=== PATIENT | male | born 1935 | race Caucasian/White ===

== ENCOUNTER → 2016-11-29 | Outpatient (CLI) | payer OTHER ==
[~2016-11-29] MED LIST: ASPI81TA28 PO; LIDO2SOL19 PO; METO25TA3 PO; RAMI10CA PO; RAMI2.5C PO; RIVA1TAB4 PO; ZCRT/40 PO
[2016-11-29 12:23] LABS: BASO % 0.6 %; BASO ABS # 0.03 K/uL (0-0.2); COMPLETE YES; HEMATOCRIT 44.6 % (42-52); IG% 0.2 %; LYMPH ABS # 1.73 K/uL (1.2-3.4); MEAN CELL VOLUME 90.7 fL (80-100); MEAN CORPUSCULAR HEMOGLOBIN 30.1 pg (25-34); MEAN CORPUSCULAR HGB CONC 33.2 g/dl (32-36); MEAN PLATELET VOLUME 10.9 fL (7.4-10.4); NEUT % 50.2 %; PLATELET COUNT 198 K/uL (130-400); RED BLOOD COUNT 4.92 M/uL (4.7-6.1); WHITE BLOOD COUNT 5.25 K/uL (4.8-10.8)
[2016-11-29 12:35] LABS: ALT/SGPT 33 U/L (12-78); BLOOD UREA NITROGEN 15 mg/dl (7-18); BUN/CREATININE RATIO 11.8 (10-20); CARBON DIOXIDE 28 mmol/L (21-32); CHLORIDE 106 mmol/L (98-107); CHOLESTEROL 113 mg/dl (0-200); GLUCOSE 104 mg/dl (70-99); POTASSIUM 3.9 mmol/L (3.5-5.1); SODIUM 142 mmol/L (136-145); TRIGLYCERIDES 86 mg/dl (0-150); VERY LOW DENSITY LIPOPROT CALC 17 mg/dl
[2016-11-29 12:38] LABS: ALB/GLOB RATIO 1.2 (0.9-2); ALKALINE PHOSPHATASE 57 U/L (45-117); AST/SGOT 31 U/L (15-37); CHOLESTEROL/HDL RATIO 2.7; HDL CHOLESTEROL 42 mg/dl; LDL CHOLESTEROL CALCULATED 54 mg/dl
[2016-11-29 13:23] LABS: CALCIUM 9.2 mg/dl (8.5-10.1)
== END | disposition home or self-care (01) ==
LOC: C.LABPBG 08:55
PROVIDERS: ATTEND Internal Medicine
DX: I34.0 Nonrheumatic mitral (valve) insufficiency (principal)

== ENCOUNTER 2017-07-13 23:06 | Emergency (ER) | payer OTHER ==
[~2017-07-13] VITALS: Ht 180.3 cm; Wt 90.7 kg
[~2017-07-13 23:06] MED LIST changes: -LIDO2SOL19 PO; -METO25TA3 PO; -RAMI10CA PO; -RIVA1TAB4 PO
[2017-07-13 23:09] VITALS: TEMP 37; Ht 180.3 cm; Wt 90.7 kg
--- NOTE | 2017-07-13 23:17 | EMERGENCY ROOM VISIT NOTE ---
History Report prepared by Nic: Gabriela Campbell Under the Supervision of: Dr. Taylor Bruner D.O. First contact with patient: 23:06 Chief Complaint: CHEST PAIN Stated Complaint: CHEST PAIN History of Present Illness The patient is a 82 year old male who presents to the Emergency Room with complaints of an episode of atrial fibrillation occurring just prior to arrival. With the onset of his symptoms, the patient was having shortness of breath, chest pain and heart racing. Presently, the patient states he feels fine. The patient's called EMS because he couldn't catch his breath. The patient has a history of an angioplasty and atrial fibrillation. 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 Presently, the pt denies headache, change in vision, fevers , chest pain, shortness of breath, nausea, vomiting, diarrhea, pain with urination, and melena. Source of History: patient Onset: just prior to arrival Position: other (generalized) Quality: other (atrial fibrillation) Timing: other (episode) Associated Symptoms: + chest pain, + SOB, No fevers, No headache, No nausea , No vomiting, No diarrhea, No urinary symptoms Review of Systems See HPI for pertinent positives & negatives. A total of 10 systems reviewed and were otherwise negative. Past Medical & Surgical Surgical Problems: (1) History of angioplasty Family History Patient reports no known family medical history. Social History Marital Status: Housing Status: lives with significant other Occupation Status: retired Current/Historical Medications Scheduled Aspirin (Aspirin Ec), 81 MG PO DAILY Lidocaine Hcl (Mouth-Throat) (Lidocaine Viscous), 5-10 ML PO TID Metoprolol Succ (Toprol Xl) (Toprol-Xl), 25 MG PO DAILY Ramipril (Ramipril), 10 MG PO DAILY Rivaroxaban (Xarelto), 20 MG PO DAILY Simvastatin (Zocor), 40 MG PO QPM Allergies Coded Allergies: No Known Allergies (Unverified , 07/13/17) Physical Exam Vital Signs Date Time Temp Pulse Resp B/P (MAP) Pulse Ox O2 Delivery O2 Flow Rate FiO2 07/14/17 03:24 103 20 152/93 93 Room Air 07/14/17 03:16 102 07/14/17 02:19 99 20 165/89 94 Room Air 07/14/17 01:34 92 20 174/98 95 Nasal Cannula 2.0 07/14/17 00:35 78 20 149/92 95 Nasal Cannula 2.0 07/13/17 23:45 110 24 169/109 97 Nasal Cannula 2.0 07/13/17 23:27 88 07/13/17 23:22 Nasal Cannula 2.0 07/13/17 23:22 96 Nasal Cannula 2.0 07/13/17 23:20 84 07/13/17 23:17 94 Room Air 07/13/17 23:09 37.0 91 22 161/117 94 Room Air Physical Exam GENERAL: alert, well appearing, well nourished, no distress, non-toxic EYE EXAM: normal conjunctiva, PERRL and EOM's grossly intact OROPHARYNX: no exudate, no erythema, lips, buccal mucosa, and tongue normal and mucous membranes are moist NECK: supple, no nuchal rigidity, no adenopathy, non-tender LUNGS: Bibasilar rales HEART: tachycardic and irregular. no murmurs, S1 normal and S2 normal ABDOMEN: abdomen soft, non-tender, normo-active bowel sounds, no masses, no rebound or guarding. BACK: Back is symmetrical on inspection and there is no deformity, no midline tenderness, no CVA tenderness. SKIN: no rashes and no bruising UPPER EXTREMITIES: upper extremities are grossly normal. LOWER EXTREMITIES: No pitting edema. NEURO EXAM: Normal sensorium, cranial nerves II-XII grossly intact, normal speech, no gross weakness of arms, no gross weakness of legs. Medical Decision & Procedures ER Provider Diagnostic Interpretation: Portable chest x-ray interpreted by me: cardiomegaly, no effusion, no significant pulmonary edema, no wide mediastinum, midline sternotomy wires noted, valvular ring noted, questionable increased interstitial markings in bilateral lobes. Laboratory Results 07/13/17 23:25 Red Blood Count 5.15, Mean Corpuscular Volume 86.2, Mean Corpuscular Hemoglobin 27.8, Mean Corpuscular Hemoglobin Concent 32.2, Mean Platelet Volume 10.6, Neutrophils (%) (Auto) 57.1, Lymphocytes (%) (Auto) 29.3, Monocytes (%) (Auto) 9.3, Eosinophils (%) (Auto) 3.5, Basophils (%) (Auto) 0.5, Neutrophils # (Auto) 4.58, Lymphocytes # (Auto) 2.34, Monocytes # (Auto) 0.74, Eosinophils # (Auto) 0.28, Basophils # (Auto) 0.04 07/13/17 23:25 Test 07/13/17 23:25 07/13/17 23:50 White Blood Count 8.00 K/uL (4.8-10.8) Red Blood Count 5.15 M/uL (4.7-6.1) Hemoglobin 14.3 g/dL (14.0-18.0) Hematocrit 44.4 % (42-52) Mean Corpuscular Volume 86.2 fL (80-100) Mean Corpuscular Hemoglobin 27.8 pg (25-34) Mean Corpuscular Hemoglobin Concent 32.2 g/dl (32-36) Platelet Count 185 K/uL (130-400) Mean Platelet Volume 10.6 fL (7.4-10.4) Neutrophils (%) (Auto) 57.1 % Lymphocytes (%) (Auto) 29.3 % Monocytes (%) (Auto) 9.3 % Eosinophils (%) (Auto) 3.5 % Basophils (%) (Auto) 0.5 % Neutrophils # (Auto) 4.58 K/uL (1.4-6.5) Lymphocytes # (Auto) 2.34 K/uL (1.2-3.4) Monocytes # (Auto) 0.74 K/uL (0.11-0.59) Eosinophils # (Auto) 0.28 K/uL (0-0.5) Basophils # (Auto) 0.04 K/uL (0-0.2) RDW Standard Deviation 47.2 fL (36.4-46.3) RDW Coefficient of Variation 15.0 % (11.5-14.5) Immature Granulocyte % (Auto) 0.3 % Immature Granulocyte # (Auto) 0.02 K/uL (0.00-0.02) Prothrombin Time 13.2 SECONDS (9.0-12.0) Prothromb Time International Ratio 1.3 (0.9-1.1) Anion Gap 7.0 mmol/L (3-11) Est Creatinine Clear Calc Drug Dose 54.6 ml/min Estimated GFR () 65.7 Estimated GFR (Non- 56.7 BUN/Creatinine Ratio 13.7 (10-20) Calcium Level 8.6 mg/dl (8.5-10.1) Magnesium Level 1.9 mg/dl (1.8-2.4) Total Bilirubin 0.6 mg/dl (0.2-1) Aspartate Amino Transf (AST/SGOT) 32 U/L (15-37) Alanine Aminotransferase (ALT/SGPT) 29 U/L (12-78) Alkaline Phosphatase 80 U/L (45-117) Troponin I < 0.015 ng/ml (0-0.045) Pro-B-Type Natriuretic Peptide 732 pg/ml (0-1800) Total Protein 7.4 gm/dl (6.4-8.2) Albumin 3.8 gm/dl (3.4-5.0) Globulin 3.6 gm/dl (2.5-4.0) Albumin/Globulin Ratio 1.1 (0.9-2) Thyroid Stimulating Hormone (TSH) 2.920 uIu/ml (0.300-4.500) Influenza Type A Antigen Neg for Influ A (NEG) Influenza Type B Antigen Neg for Influ B (NEG) Urine Color YELLOW Urine Appearance CLEAR (CLEAR) Urine pH 7.0 (4.5-7.5) Urine Specific [place] 1.014 (1.000-1.030) Urine Protein 1+ (NEG) Urine Glucose (UA) NEG (NEG) Urine Ketones NEG (NEG) Urine Occult Blood 1+ (NEG) Urine Nitrite NEG (NEG) Urine Bilirubin NEG (NEG) Urine Urobilinogen NEG (NEG) Urine Leukocyte Esterase NEG (NEG) Urine WBC (Auto) 0 /hpf (0-5) Urine RBC (Auto) 5-10 /hpf (0-4) Urine Hyaline Casts (Auto) 1-5 /lpf (0-5) Urine Epithelial Cells (Auto) 0-5 /lpf (0-5) Urine Bacteria (Auto) NEG (NEG) Laboratory results per my review. Medications Administered Medications (Trade) Dose Ordered Sig/Travon Route Start Time Stop Time Status Last Admin Dose Admin Lidocaine HCl (Viscous Lidocaine 2% Soln) 10 ml NOW STAT MT 07/14/17 01:32 07/14/17 01:33 DC 07/14/17 01:42 10 ML Albuterol/ Ipratropium (Duoneb) 3 ml NOW STAT INH 07/14/17 02:16 07/14/17 02:17 DC 07/14/17 02:21 3 ML ECG Indication: chest pain, SOB/dyspnea Rate (beats per minute): 89 Rhythm: atrial fibrillation Findings: PVC, no acute ischemic change, no ectopy, other (Normal QRS, normal QTC) ED Course 230: The patient was evaluated in room B8. A complete history and physical exam was performed. 2345: The patient had another episode of what appeared to be coughing fit and bronchospasms. During this episode he had no change in o2 saturation. 0058: The patient is still having coughing fits and is still in atrial fibrillation. 0132: Ordered Lidocaine HCl 10 ml MT. 0208: The patient is feeling better is no longer having coughing fits. 0216: Ordered Duoneb 3 ml INH. 0246: Patient states feeling better since neb treatment. Awaiting rapid strep. 0322: Upon reevaluation, the patient is feeling better. I discussed the findings and the treatment plan with the patient. He verbalizes agreement and understanding. The patient was discharged home. Medical Decision Differential diagnosis: Etiologies such as infections, reactive airway disease, pneumonia, pneumothorax , COPD, CHF, cardiac ischemia, pulmonary embolism, musculoskeletal, gastrointestinal, as well as others were entertained. Patient well-appearing here, fits of coughing leading to bronchospasm noted. Patient never hypoxic during episodes. Patient's A. fib chronic although patient initially unsure and information not readily available in EMR. Patient is anticoagulated. Patient originally given Cardizem by EMS, however did not require any additional rate control here. Feel patient's elevated heart rate is reported by EMS likely due to fits of coughing and increased work of breathing. Patient improved here following nebulizer treatment and Viscous Lidocaine for sore throat. Rapid struck negative. I do not suspect deep space infection, or peritonsillar abscess. No evidence of infiltrate or effusion, I do not suspect ACS or dissection. Likely given recent bronchitis that was treated as an outpatient patient with residual cough, and coughing is leading to severe bronchospasm. Discussed with patient follow-up with family doctor, symptoms to watch and return for, he verbalized understanding was agreeable with plan. Medication Reconcilliation Current Medication List: was personally reviewed by me Blood Pressure Screening Patient's blood pressure: Elevated blood pressure Blood pressure disposition: Referred to PCP (evaluated by hospitalist) Impression Primary Impression: Bronchospasm Additional Impression: Cough Scribe Attestation The scribe's documentation has been prepared under my direction and personally reviewed by me in its entirety. I confirm that the note above accurately reflects all work, treatment, procedures, and medical decision making performed by me. Departure Information Dispostion Home / Self-Care Prescriptions Lidocaine Hcl (Mouth-Throat) (LIDOCAINE VISCOUS) 2 % [place] 5-10 ML PO TID for Pain, #100 ML Prov: Taylor Bruner, DO 07/14/17 Forms HOME CARE DOCUMENTATION FORM, IMPORTANT VISIT INFORMATION Patient Instructions My [facility] Additional Instructions Please continue regular medications as prescribed. Please follow up with your family doctor. You may use [id number] cough medicines as your previously doing. You may use the additional sore throat medication as prescribed. If you develop worsening cough, have difficulty swallowing, develop fevers, trouble breathing, noticed blood in your sputum, chest pain, or you have any other new concerns, please return the emergency room. Problem Qualifiers
[2017-07-13 23:22] VITALS: O2SAT 96
[2017-07-13] MEDS ORDERED: RIVA1TAB4 PO (23:46)
[2017-07-13] MEDS ORDERED: RAMI10CA PO (23:46)
[2017-07-13] MEDS ORDERED: METO25TA3 PO (23:46)
[2017-07-13 23:58] LABS: BASO % 0.5 %; BASO ABS # 0.04 K/uL (0-0.2); COMPLETE YES; EOS % 3.5 %; HEMATOCRIT 44.4 % (42-52); IG% 0.3 %; LYMPH % 29.3 %; LYMPH ABS # 2.34 K/uL (1.2-3.4); MEAN CELL VOLUME 86.2 fL (80-100); MEAN CORPUSCULAR HEMOGLOBIN 27.8 pg (25-34); MEAN CORPUSCULAR HGB CONC 32.2 g/dl (32-36); MEAN PLATELET VOLUME 10.6 fL (7.4-10.4); MONO % 9.3 %; NEUT % 57.1 %; PLATELET COUNT 185 K/uL (130-400); RED BLOOD COUNT 5.15 M/uL (4.7-6.1)
[2017-07-14 00:08] LABS: INR 1.3 (0.9-1.1); PROTHROMBIN TIME (PATIENT) 13.2 SECONDS (9.0-12.0)
[2017-07-14 00:11] LABS: URINE APPEARANCE CLEAR (CLEAR); URINE BILIRUBIN NEG (NEG); URINE COLOR YELLOW; URINE EPITHELIAL CELL AUTO 0-5 /lpf (0-5); URINE NITRITE NEG (NEG); URINE SPECIFIC GRAVITY 1.014 (1.000-1.030); UROBILINOGEN NEG (NEG); ZZUR CULT IF INDIC CLEAN CATCH NO
[2017-07-14 00:12] LABS: MANUAL MICROSCOPIC REQUIRED? NO; REVIEW REQ? NO
[2017-07-14 00:17] LABS: ALT/SGPT 29 U/L (12-78); AST/SGOT 32 U/L (15-37); BLOOD UREA NITROGEN 16 mg/dl (7-18); BUN/CREATININE RATIO 13.7 (10-20); CALCIUM 8.6 mg/dl (8.5-10.1); CARBON DIOXIDE 25 mmol/L (21-32); CHLORIDE 106 mmol/L (98-107); CREATININE 1.18 mg/dl (0.60-1.40); GLUCOSE 118 mg/dl (70-99); MAGNESIUM 1.9 mg/dl (1.8-2.4); POTASSIUM 3.7 mmol/L (3.5-5.1); SODIUM 138 mmol/L (136-145)
[2017-07-14 00:22] LABS: ALB/GLOB RATIO 1.1 (0.9-2); ALKALINE PHOSPHATASE 80 U/L (45-117)
[2017-07-14] MEDS ORDERED: LIDOCAINE HCL 2% VISC SOLN 20 ML UDC MT STA (01:32)
[2017-07-14] MEDS ORDERED: ALBUT/IPRATROP 3MG/0.5MG NEB 3 ML VIAL INH STA (02:16)
[2017-07-14 03:24] VITALS: BP 152/93; PULSE 103; O2SAT 93
[2017-07-14] MEDS ORDERED: LIDO2SOL19 PO (03:25)
--- NOTE | 2017-07-14 06:45 | DIAGNOSTIC IMAGING REPORT ---
CHEST ONE VIEW PORTABLE CLINICAL HISTORY: sob dyspnea COMPARISON STUDY: No previous studies for comparison. FINDINGS: Mild cardia megaly. Prior median sternotomy and valve replacement. Diaphragms smooth. Minimal interstitial change at both lung bases. Mid and upper lungs are clear. IMPRESSION: Mild cardiomegaly. Postoperative changes noted. Nonspecific bibasilar interstitial change. The above report was generated using voice recognition software. It may contain grammatical, syntax or spelling errors. Electronically signed by: Apollo Erazo M.D. 07/14/2017 6:43 AM Dictated Date/Time: 07/14/2017 6:42 AM
== END 2017-07-14 03:33 | disposition home or self-care (01) ==
LOC: EDBD 23:06 → C.EDB 23:09
DX: J98.01 Acute bronchospasm (principal); R05 Cough; Z79.82 Long term (current) use of aspirin

== ENCOUNTER 2021-04-04 21:18 | Inpatient (IN) ==
--- NOTE | 2021-04-04 21:32 | CT Scan Report ---
CT SCAN OF THE BRAIN WITHOUT IV CONTRAST CLINICAL HISTORY: Strokelike symptoms. COMPARISON STUDY: No priors. TECHNIQUE: Unenhanced axial CT scan of the brain is performed from the vertex to the skull base. A do se lowering technique was utilized adhering to the principles of ALARA. FINDINGS: Brain parenchyma: There is a large parenchymal hematoma centered in the left basal ganglia. This is b est seen on image #13 and measures approximately 5.5 x 6.5 x 4 cm. There is significant surrounding e ayse with effacement of the left lateral ventricle and minimal [id number] midline shift. There is intraventricular extension of hemorrhage, with blood filling the left lateral ventricle. There is als o trace blood in the third and fourth ventricles. No additional foci of parenchyma hemorrhage are gladys ntified. There are age-related involutional changes noting moderate to advanced confluent subcortica l and periventricular microangiopathic change. There is no evidence of acute territorial ischemia by CT criteria. No extra-axial fluid collection is seen. Ventricles, sulci, cisterns: Prominent secondary to involutional change. See above. Intracranial vasculature: There is atherosclerotic calcification of the cavernous carotid arteries. Calvarium: Unremarkable. Sinuses and mastoids: Mucosal thickening is noted in the ethmoid left frontal sinuses. The remaining visualized paranasal sinuses are clear. The mastoid air cells are well pneumatized. Orbits: The bony orbits are grossly intact. There are bilateral ocular lens implants. IMPRESSION: 1. There is an approximately 6.5 cm parenchymal hemorrhage centered in the left basal ganglia. 2. There is significant associated mass effect with effacement of the left lateral ventricle and mini mal [id number] midline shift. 3. There is intraventricular extension of hemorrhage, with blood present in the left lateral ventricl e as well as the third and fourth ventricles. 4. There is no evidence of acute territorial ischemia by CT criteria. ACT 112: Negative or not required by law. Electronically signed by: Juan Francisco Jernigan M.D. 04/04/2021 9:31 PM
[2021-04-04] MEDS ORDERED: niCARdipine 25 MG in SODIUM CHLORIDE 0.9% 240 ML IV PRN (21:33)
[2021-04-04 21:39] LABS: INR 1.3 (0.9-1.1); Partial Thromboplastin Ratio 1.2; Partial Thromboplastin Time 30.4 Seconds (21.0-31.0); Prothrombin Time 13.2 Seconds (9.0-12.0)
[2021-04-04] MEDS ORDERED: ONDANSETRON INJ 2 MG/ML 2 ML VIAL IV STA ×2 (21:40→22:01)
[2021-04-04] MEDS ORDERED: RAPID SEQUENCE INDUCTION BAG ONE (21:42)
[2021-04-04 21:43] LABS: Basophils # (auto) 0.02 K/uL (0-0.2); Basophils % (auto) 0.4 %; Eosinophils # (auto) 0.24 K/uL (0-0.5); Eosinophils % (auto) 4.4 %; Hematocrit (blood only) 42.2 % (42-52); Immature Granulocytes # (auto) 0.01 K/uL (0.00-0.02); Immature Granulocytes % (auto) 0.2 %; Lymphocytes # (auto) 2.62 K/uL (1.2-3.4); Lymphocytes % (auto) 47.6 %; Mean Corpuscular Hemoglobin 30.9 pg (25-34); Mean Corpuscular Hgb Conc 33.2 g/dL (32-36); Mean Corpuscular Volume 93.2 fL (80-100); Mean Platelet Volume 10.9 fL (7.4-10.4); Monocytes # (auto) 0.41 K/uL (0.11-0.59); Monocytes % (auto) 7.5 %; Neutrophils % (auto) 39.9 %; Platelet Count 191 K/uL (130-400); RDW Coefficient of Variation 13.5 % (11.5-14.5); RDW Standard Deviation 46.2 fL (36.4-46.3); Red Blood Count 4.53 M/uL (4.7-6.1)
[2021-04-04] MEDS ORDERED: KCENTRA (500unit vial) 2000 units IVP IV ONE (21:45)
--- NOTE | 2021-04-04 21:45 | XRay Report ---
SINGLE VIEW CHEST CLINICAL HISTORY: Strokelike symptoms. FINDINGS: An AP, portable, upright chest radiograph is compared to study dated 07/13/2017. The examina tion is degraded by portable technique and patient rotation. The patient is status post midline judd otomy and cardiac valve surgery. The heart is enlarged noting atherosclerotic calcification of the th oracic aorta. There is mild pulmonary vascular congestion. There is chronic elevation of the left hem idiaphragm with bibasilar scarring/atelectasis. No airspace consolidation or large pleural effusion i s identified. No pneumothorax is seen. The skeletal structures are osteopenic. The bony thorax is marisela ssly intact. IMPRESSION: Cardiomegaly with mild pulmonary vascular congestion. ACT 112: Negative or not required by law. Electronically signed by: Juan Francisco Jernigan M.D. 04/04/2021 9:43 PM
[2021-04-04 21:46] LABS: Alanine Aminotransferase 23 U/L (12-78); Albumin Level 3.7 gm/dl (3.4-5.0); Aspartate Aminotransferase 30 U/L (15-37); BUN Creatinine Ratio 16.5 (10-20); Blood Urea Nitrogen 23 mg/dl (7-18); Calcium 9.4 mg/dl (8.5-10.1); Carbon Dioxide 30 mmol/L (21-32); Chloride 109 mmol/L (98-107); Creatinine Clr Calc Pharmacy 41.9 ml/min; Est GFR (African American) 52.8 ml/min; Est GFR (Non-African American) 45.6 ml/min; Glucose 171 mg/dl (70-99); Magnesium 2.2 mg/dl (1.8-2.4); Sodium 141 mmol/L (136-145)
[2021-04-04 21:50] LABS: Alkaline Phosphatase 77 U/L (45-117); Bilirubin,Total 0.6 mg/dl (0.2-1); Globulin 3.6 gm/dl (2.5-4.0); Total Protein 7.3 gm/dl (6.4-8.2); Troponin I < 0.015 ng/ml (0-0.045)
[2021-04-04] MEDS ORDERED: MoRPHine SULFATE 10 MG/ML CARP/VIAL IV STA (21:59)
[2021-04-04] MEDS ORDERED: MoRPHine SULFATE 4 MG/ML 1 ML CARP\\VIAL ONE (22:02)
[2021-04-04] MEDS ORDERED: MoRPHine SULFATE 2 MG/ML CARP ONE (22:02)
--- NOTE | 2021-04-04 22:21 | Emergency Department Note ---
History of Present Illness General Chief complaint: Stroke Alert Stated complaint: CVA SYMPTOMS History of Present Illness This is an 85-year-old male who presents to the ED with a chief complaint of sudden onset of slurred speech and inability to get up out of a bench/chair. The [place] He sat down and was unable to get up. EMS was called and the patient was found to have a flaccid right side. He was brought here as a stroke alert. The patient is unable to communi cal verbally but does follow commands. Prehospital blood sugar was around 150. Blood pressure was elevated. Patient does have history of atrial fibrillation and is chronically on rivaroxaban once daily. His last dose was about 24 hours ago. No trauma. Home Medications Medication Instructions Recorded Confirmed Type aspirin 81 mg tablet,delayed 81 mg PO DAILY #90 tab 03/16/19 04/04/21 Rx release (Adult Low Dose Aspirin) Auto Titrating CPAP #1 ea 12/28/19 12/01/20 Rx atorvastatin 40 mg tablet 40 mg PO DAILY #90 tab 09/25/20 04/04/21 Rx metoprolol succinate 25 mg See Rx Instructions PO .COMPLEX 12/01/20 04/04/21 Rx tablet,extended release 24 hr #270 tab calcium carbonate-vitamin D3 600 1 cap PO DAILY cap 12/15/20 04/04/21 History mg (1,500 mg)-400 unit capsule multivitamin 1 tab PO QAM 04/04/21 04/04/21 History ramipril 10 mg capsule 10 mg PO BID 04/04/21 04/04/21 History rivaroxaban 20 mg tablet 20 mg PO HS 04/04/21 04/04/21 History Allergies Allergy/AdvReac Type Severity Reaction Status Date / Time No Known Drug Allergies Allergy Verified 04/04/21 21:32 Past Med/Surg History Medical History Acute bronchospasm History of hypotension Nephrolithiasis Wheezing Surgical History History of angioplasty History of appendectomy History of mitral valve repair Status post operation involving aortic valve Family History Mother Myocardial infarction Other Diabetes Denies family history of Ovarian cancer Prostate cancer Breast cancer Colorectal cancer Social History Smoking Status: Former smoker Tobacco Type: Pipe Age Quit Using Tobacco: 44; Years Smoked: 20; Cigarettes Per Day: SMOKED PIPE REGULARLY; Hx Alcohol Use: No Hx Substance Use: No Visual Impairment: No Limitations Hearing Ability: Use of Hearing Aid Beliefs That Will Affect Care: None marital status: Current Living Situation: Spouse current occupational status: retired Feels Safe at Home: Yes caffeine: Yes during the past year weight has: remained stable Dental Care, Regularly: Yes Physical Activity Frequency: 3-4 Times per Week Seatbelt Use: always Sunscreen Use: No Review of Systems Unobtainable due to cognitive status Physical Exam Vital Signs Vital Signs - 24 hr 04/04/21 21:10 04/04/21 21:25 04/04/21 21:28 Pulse Rate 110 H 117 H Respiratory Rate 20 20 Respiratory Effort / Characteristics Non-Labored Respiratory Depth Normal Blood Pressure 200/117 H 200/117 H Blood Pressure Mean 144 144 Pulse Oximetry 93 93 96 Oxygen Delivery Method Nasal Cannula Nasal Cannula Oxygen Flow Rate 2 2 2 Sepsis Recent Fever Within 48 Hours No Sepsis New/Unexplained Change in Mental Status No Sepsis Action Taken by Nursing No Action Required 04/04/21 21:32 04/04/21 21:46 04/04/21 22:00 Pulse Rate 137 H 147 H 143 H Respiratory Rate 24 22 Respiratory Effort / Characteristics Respiratory Depth Blood Pressure 224/148 H 201/163 H 177/124 H Blood Pressure Mean 173 175 141 Pulse Oximetry 95 93 92 Oxygen Delivery Method Nasal Cannula Nasal Cannula Nasal Cannula Oxygen Flow Rate 2 2 2 Sepsis Recent Fever Within 48 Hours Sepsis New/Unexplained Change in Mental Status Sepsis Action Taken by Nursing CONSTITUTIONAL/VITAL SIGNS: Reviewed / noted above. GENERAL: Acutely ill INTEGUMENTARY: Warm, dry, and [place]. Slightly diaphoretic. HEAD: Normocephalic. EYES: without scleral icterus or trauma. ENT/OROPHARYNX: clear and moist. LYMPHADENOPATHY/NECK: Is supple without lymphadenopathy or meningismus. RESPIRATORY: Clear to auscultation bilaterally. CARDIOVASCULAR: Tachycardic rate and irregular rhythm GI/ABDOMEN: Soft and nontender. No organomegaly or pulsatile mass. EXTREMITIES: Warm and well perfused. BACK: No CVA tenderness. NEUROLOGICAL: Right-sided facial droop/weakness. Leftward gaze. Right hemineglect. Flaccid paralysis on the right arm and right leg. Follows commands with regards to movement of his left arm and left leg. Did not respond verbally. PSYCHIATRIC: Unable to assess MUSCULOSKELETAL: Normally developed for age. TRIAGE NURSING DOCUMENTATION REVIEWED. Course Administered Medications Nicardipine HCl 25 mg/ Sodium (Chloride) 250 mls @ 50 mls/hr IV .Q5H PRN; Protocol PRN Reason: SBP above 185 or DBP above 110 Stop: 05/04/21 21:32 Last Admin: 04/04/21 21:46 Dose: 5 mg/hr, 50 mls/hr Documented by: [id number] Cosigned by: [id number] Discontinued Medications Prothrombin Complex Concent ( (Human) 2,000 units/ Syringe) 80 mls @ 10 mls/min IV 2145 ONE; Protocol Stop: 04/04/21 21:52 Last Admin: 04/04/21 22:11 Dose: 10 mls/min Documented by: [id number] Morphine Sulfate (Morphine Sulfate 10 Mg/Ml Carp/Vial) 6 mg IV NOW STA Stop: 04/04/21 22:00 Last Admin: 04/04/21 22:06 Dose: 6 mg Documented by: [id number] Morphine Sulfate (Morphine Sulfate 2 Mg/Ml Carp) Confirm Administered Dose 2 mg .ROUTE .STK-MED ONE Stop: 04/04/21 22:03 Last Admin: 04/04/21 22:11 Dose: Not Given Documented by: [id number] Morphine Sulfate (Morphine Sulfate 4 Mg/Ml 1 Ml Carp\Vial) Confirm Administered Dose 4 mg .ROUTE .STK-MED ONE Stop: 04/04/21 22:03 Last Admin: 04/04/21 22:11 Dose: Not Given Documented by: [id number] Ondansetron HCl (Ondansetron Inj 2 Mg/Ml 2 Ml Vial) 4 mg IV NOW STA Stop: 04/04/21 21:41 Last Admin: 04/04/21 21:48 Dose: 4 mg Documented by: [id number] Ondansetron HCl (Ondansetron Inj 2 Mg/Ml 2 Ml Vial) 4 mg IV NOW STA Stop: 04/04/21 22:02 Last Admin: 04/04/21 22:06 Dose: 4 mg Documented by: [id number] Critical Care Time Critical Care Time: Yes Total Critical Care Time: 60 I have personally spent 60 minutes of critical care time in the direct management of this patient. This includes bedside care, interpretation of diagnostic studies, and testing, discussion with consultants, patient, and family members, and other required patient management activities. This 60 minutes is in excess of all separately billable procedures. Medical Decision Making Differential Diagnosis Differential includes acute coronary syndrome, myocardial infarction, CVA, TIA, anemia, infection, pneumonia, UTI, pyelonephritis, poor nutrition, dehydration, electrolyte disturbance,hypoglycemia. Medical Records Attestation: I reviewed the patient's medical records. Home Medications Current Medication List: was personally reviewed by me Laboratory Data Attestation: I reviewed the patient's lab results. Result diagrams: 04/04/21 21:10 04/04/21 21:10 Lab Results 04/04/21 04/04/21 04/04/21 Range/Units 21:10 21:10 21:10 WBC 5.50 (4.8-10.8) K/uL RBC 4.53 L (4.7-6.1) M/uL Hgb 14.0 (14.0-18.0) g/dL Hct 42.2 (42-52) % MCV 93.2 (80-100) fL MCH 30.9 (25-34) pg MCHC 33.2 (32-36) g/dL RDW Std Deviation 46.2 (36.4-46.3) fL RDW Coeff of Xena 13.5 (11.5-14.5) % Plt Count 191 (130-400) K/uL MPV 10.9 H (7.4-10.4) fL Immature Gran % (Auto) 0.2 % Neut % (Auto) 39.9 % Lymph % (Auto) 47.6 % [place] % (Auto) 7.5 % Eos % (Auto) 4.4 % Baso % (Auto) 0.4 % Neut # (Auto) 2.20 (1.4-6.5) K/uL Lymph # (Auto) 2.62 (1.2-3.4) K/uL [place] # (Auto) 0.41 (0.11-0.59) K/uL Eos # (Auto) 0.24 (0-0.5) K/uL Baso # (Auto) 0.02 (0-0.2) K/uL Immature Gran # (Auto) 0.01 (0.00-0.02) K/uL PT 13.2 H (9.0-12.0) Seconds INR 1.3 H (0.9-1.1) APTT 30.4 (21.0-31.0) Seconds PTT Ratio 1.2 Sodium 141 (136-145) mmol/L Potassium 4.0 (3.5-5.1) mmol/L Chloride 109 H (98-107) mmol/L Carbon Dioxide 30 (21-32) mmol/L Anion Gap 2.0 L (3-11) BUN 23 H (7-18) mg/dl Creatinine 1.39 (0.6-1.4) mg/dl Est Cr Clr Drug Dosing 41.9 ml/min Est GFR ( Amer) 52.8 ml/min Est GFR (Non-Af Amer) 45.6 ml/min BUN/Creatinine Ratio 16.5 (10-20) Glucose 171 H (70-99) mg/dl Calcium 9.4 (8.5-10.1) mg/dl Magnesium 2.2 (1.8-2.4) mg/dl Total Bilirubin 0.6 (0.2-1) mg/dl AST 30 (15-37) U/L ALT 23 (12-78) U/L Alkaline Phosphatase 77 (45-117) U/L Troponin I < 0.015 (0-0.045) ng/ml Total Protein 7.3 (6.4-8.2) gm/dl Albumin 3.7 (3.4-5.0) gm/dl Globulin 3.6 (2.5-4.0) gm/dl Albumin/Globulin Ratio 1.0 (0.9-2) Imaging Data Radiologist's Impression: Chest X-Ray 04/04/21 21:12 SINGLE VIEW CHEST CLINICAL HISTORY: Strokelike symptoms. FINDINGS: An AP, portable, upright chest radiograph is compared to study dated 07/13/2017. The examination is degraded by portable technique and patient rotation. The patient is status post midline sternotomy and cardiac valve surgery. The heart is enlarged noting atherosclerotic calcification of the thoracic aorta. There is mild pulmonary vascular congestion. There is chronic elevation of the left hemidiaphragm with bibasilar scarring/atelectasis. No airspace consolidation or large pleural effusion is identified. No pneumothorax is seen. The skeletal structures are osteopenic. The bony thorax is grossly intact. IMPRESSION: Cardiomegaly with mild pulmonary vascular congestion. ACT 112: Negative or not required by law. Electronically signed by: Juan Francisco Jernigan M.D. 04/04/2021 9:[address] 04/04/21 21:12 CT SCAN OF THE BRAIN WITHOUT IV CONTRAST CLINICAL HISTORY: Strokelike symptoms. COMPARISON STUDY: No priors. TECHNIQUE: Unenhanced axial CT scan of the brain is performed from the vertex to the skull base. A dose lowering technique was utilized adhering to the principles of ALARA. FINDINGS: Brain parenchyma: There is a large parenchymal hematoma centered in the left basal ganglia. This is best seen on image #13 and measures approximately 5.5 x 6.5 x 4 cm. There is significant surrounding edema with effacement of the left lateral ventricle and minimal [id number] midline shift. There is intraventri cular extension of hemorrhage, with blood filling the left lateral ventricle. There is also trace blood in the third and fourth ventricles. No additional foci of parenchyma hemorrhage are identified. There are age-related involutional changes noting moderate to advanced confluent subcortical and periventricular microangiopathic change. There is no evidence of acute territorial ischemia by CT criteria. No extra-axial fluid collection is seen. Ventricles, sulci, cisterns: Prominent secondary to involutional change. See above. Intracranial vasculature: There is atherosclerotic calcification of the cavernous carotid arteries. Calvarium: Unremarkable. Sinuses and mastoids: Mucosal thickening is noted in the ethmoid left frontal sinuses. The remaining visualized paranasal sinuses are clear. The mastoid air cells are well pneumatized. Orbits: The bony orbits are grossly intact. There are bilateral ocular lens implants. IMPRESSION: 1. There is an approximately 6.5 cm parenchymal hemorrhage centered in the left basal ganglia. 2. There is significant associated mass effect with effacement of the left lateral ventricle and minimal tupt-[id number] midline shift. 3. There is intraventricular extension of hemorrhage, with blood present in the left lateral ventricle as well as the third and fourth ventricles. 4. There is no evidence of acute territorial ischemia by CT criteria. ACT 112: Negative or not required by law. Electronically signed by: Juan Francisco Jernigan M.D. 04/04/2021 9:31 PM MDM Narrative Patient presents to the ED after having acute strokelike symptoms as detailed above. The blood work was unremarkable. Chest x-ray showed some mild pulmonary congestion. CT scan of the brain shows a large hemorrhage in the left basal ganglia. I did speak with the family with regards to possible transfer. They agreed with [facility]. I did speak with [facility] neurology who also was able to evaluate the CT scan images. They feel that this is an unrecoverable insult to the brain and the patient has a 97% chance of dying with this insult and they did not feel any tertiary care modalities would help with the patient's condition and recommended the patient be admitted here with comfort care measures. I did speak to the family to this regard. I spoke with the hospitalist. The patient was treated with IV morphine. He was also initially given IV Kayexalate. He had numerous episodes of vomiting for which he was given IV Zofran. His blood pressure was very high and he was given IV nicardipine for this. He was also given IV morphine for comfort care measures and discomfort. He will be seen by the hospitalist for further inpatient comfort care. Impression & Plan Intracranial hemorrhage Discharge Plan Visit Data Chief Complaint: Stroke Alert Stated Complaint: CVA SYMPTOMS ED Provider: German Vela Discharge Problem: Intracranial hemorrhage Patient Disposition: Being Evaluated by Hospitalist Forms Stand Alone Forms: [facility] Prescriptions Prescriptions: No Action (DME) Auto Titrating CPAP Misc See Rx Instructions .ROUTE .MEDSUPPLY Qty: 1 RF: 0 atorvastatin 40 mg tablet 40 mg PO DAILY Qty: 90 RF: 3 calcium carbonate-vitamin D3 600 mg(1,500mg) -400 unit capsule 1 cap PO DAILY RF: 0 metoprolol succinate 25 mg tablet extended release 24 hr See Rx Instructions PO .COMPLEX Qty: 270 RF: 3 aspirin [Adult Low Dose Aspirin] 81 mg tablet,delayed release (DR/EC) 81 mg PO DAILY Qty: 90 RF: 3 multivitamin Tablet 1 tab PO QAM RF: 0 ramipril 10 mg capsule 10 mg PO BID RF: 0 rivaroxaban 20 mg tablet 20 mg PO HS RF: 0 Referrals Referrals: Howard Mckeon MD [Primary Care Provider] -
[2021-04-04] MEDS ORDERED: PROCHLORPERAZINE 2 ML IV ONE (22:48)
--- NOTE | 2021-04-05 00:23 | History & Physical Report ---
Date of Service April 05, 2021 Assessment & Plan (1) Intracranial hemorrhage: Plan: Patient is an 85 year old male with PMHx TAVIA, hypertension, Dyslipidemia, Atrial fibrillation who presented as a stroke alert for concerns of R sided facial drooping, weakness, and slurred speech. Patient was found to have a 6.5cm parenchymal hemorrhage centered in the L basal ganglia with mass effect and left to right midline shift. Discussion held with family and patient will be admitted for comfort measures. Comfort Measures Only -Patient with 6.5cm parenchymal hemorrhage in the L basal ganglia with mass effect and L to R midline shift. 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 -Morphine 2mg q4h PRN for pain/discomfort -Glycopyrrolate PRN secretions -Zofran PRN nausea -Oxygen by Nasal cannula PRN for comfort, discussed with family that if the cannula/mask should start bothering the patient again it would be appropriate to remove Dispo: Med/Surg FEN: PO for comfort DVT: deferred Code: DNR/DNI Comfort measures only History of Present Illness Chief Complaint: Stroke Primary Care Provider: Howard Mckeon MD Patient is an 85 year old male with PMHx TAVIA, hypertension, Dyslipidemia, Atrial fibrillation who presented as a stroke alert for concerns of R sided facial drooping, weakness, and slurred speech. Patient was found to have a 6.5cm parenchymal hemorrhage centered in the L basal ganglia with mass effect and left to right midline shift. Patient is unable to provide any history at this time due to lack of consciousness, and patient's , Shoshana, provides the history. She notes that they were out at the [facility] when the patient had gone to sit down. He then noted that he was unable to stand back up and other family members noticed the R sided facial drooping. EMS was called and patient was immediately brought to the ED for evaluation of stroke. Patient was found to have a significant parenchymal hemorrhage. Family decided that they would not want to pursue treatment and would rather bring the patient into the hospital for comfort measures. This was again addressed with Shoshana who agreed she would not want any heroic measures taken and that the ultimate goal for Derick would be to make his passing as comfortable as possible. She noted that they both had already completed their living ornelas in the event something like this would happen. Allergies Allergy/AdvReac Type Severity Reaction Status Date / Time No Known Drug Allergies Allergy Verified 04/04/21 21:32 Home Medications Medication Instructions Recorded Confirmed Type aspirin 81 mg tablet,delayed 81 mg PO DAILY #90 tab 03/16/19 04/04/21 Rx release (Adult Low Dose Aspirin) Auto Titrating CPAP #1 ea 12/28/19 12/01/20 Rx atorvastatin 40 mg tablet 40 mg PO DAILY #90 tab 09/25/20 04/04/21 Rx metoprolol succinate 25 mg See Rx Instructions PO .COMPLEX 12/01/20 04/04/21 Rx tablet,extended release 24 hr #270 tab calcium carbonate-vitamin D3 600 1 cap PO DAILY cap 12/15/20 04/04/21 History mg (1,500 mg)-400 unit capsule multivitamin 1 tab PO QAM 04/04/21 04/04/21 History ramipril 10 mg capsule 10 mg PO BID 04/04/21 04/04/21 History rivaroxaban 20 mg tablet 20 mg PO HS 04/04/21 04/04/21 History Past Med/Surg History Medical History Acute bronchospasm History of hypotension Nephrolithiasis Wheezing Surgical History History of angioplasty History of appendectomy History of mitral valve repair Status post operation involving aortic valve Family History Mother Myocardial infarction Other Diabetes Denies family history of Ovarian cancer Prostate cancer Breast cancer Colorectal cancer Social History Smoking Status: Former smoker Tobacco Type: Pipe Age Quit Using Tobacco: 44; Years Smoked: 20; Cigarettes Per Day: SMOKED PIPE REGULARLY; Hx Alcohol Use: No Hx Substance Use: No Visual Impairment: No Limitations Hearing Ability: Use of Hearing Aid Beliefs That Will Affect Care: None marital status: Current Living Situation: Spouse current occupational status: retired Feels Safe at Home: Yes caffeine: Yes during the past year weight has: remained stable Dental Care, Regularly: Yes Physical Activity Frequency: 3-4 Times per Week Seatbelt Use: always Sunscreen Use: No Assistive Devices: Oxygen - Continuous Review of Systems Review of Systems: Unobtainable due to cognitive status Physical Exam Physical Exam: Neuro: Patient with reduced consciousness with minimal reaction to physical stimuli. R sided facial droop. Unable to follow commands. Heart: Tachycardic, irregularly irregular Lungs: CTA bilateral Abdomen: Soft, normal bowel sounds Results & Data Results & Data ([facility]) Vital Signs (Past 12 Hours) Vital Signs Pulse Resp BP Pulse Ox 04/05/21 00:00 109 H 19 136/84 95 04/04/21 23:30 104 H 17 158/90 H 95 04/04/21 22:31 89 L 04/04/21 22:30 111 H 18 137/74 91 04/04/21 22:15 114 H 18 129/77 90 04/04/21 22:00 143 H 177/124 H 92 04/04/21 21:46 147 H 22 201/163 H 93 04/04/21 21:32 137 H 24 224/148 H 95 04/04/21 21:28 117 H 20 200/117 H 96 04/04/21 21:25 93 04/04/21 21:10 110 H 20 200/117 H 93 Laboratory Results Laboratory Results - last 24 hr 04/04/21 04/04/21 04/04/21 21:10 21:10 21:10 WBC 5.50 RBC 4.53 L Hgb 14.0 Hct 42.2 MCV 93.2 MCH 30.9 MCHC 33.2 RDW Std Deviation 46.2 RDW Coeff of Xena 13.5 Plt Count 191 MPV 10.9 H Immature Gran % (Auto) 0.2 Neut % (Auto) 39.9 Lymph % (Auto) 47.6 [place] % (Auto) 7.5 Eos % (Auto) 4.4 Baso % (Auto) 0.4 Neut # (Auto) 2.20 Lymph # (Auto) 2.62 [place] # (Auto) 0.41 Eos # (Auto) 0.24 Baso # (Auto) 0.02 Immature Gran # (Auto) 0.01 PT 13.2 H INR 1.3 H APTT 30.4 PTT Ratio 1.2 Sodium Potassium Chloride Carbon Dioxide Anion Gap BUN Creatinine Est Cr Clr Drug Dosing Est GFR ( Amer) Est GFR (Non-Af Amer) BUN/Creatinine Ratio Glucose Calcium Magnesium Total Bilirubin AST ALT Alkaline Phosphatase Troponin I Total Protein Albumin Globulin Albumin/Globulin Ratio COVID-19 Eval Order SARS-CoV-2 (PCR) Blood Type O Positive Antibody Screen NEGATIVE 04/04/21 04/04/21 04/04/21 21:10 22:37 22:37 WBC RBC Hgb Hct MCV MCH MCHC RDW Std Deviation RDW Coeff of [place]ena Plt Count MPV Immature Gran % (Auto) Neut % (Auto) Lymph % (Auto) [place] % (Auto) Eos % (Auto) Baso % (Auto) Neut # (Auto) Lymph # (Auto) [place] # (Auto) Eos # (Auto) Baso # (Auto) Immature Gran # (Auto) PT INR APTT PTT Ratio Sodium 141 Potassium 4.0 Chloride 109 H Carbon Dioxide 30 Anion Gap 2.0 L BUN 23 H Creatinine 1.39 Est Cr Clr Drug Dosing 41.9 Est GFR ( Amer) 52.8 Est GFR (Non-Af Amer) 45.6 BUN/Creatinine Ratio 16.5 Glucose 171 H Calcium 9.4 Magnesium 2.2 Total Bilirubin 0.6 AST 30 ALT 23 Alkaline Phosphatase 77 Troponin I < 0.015 Total Protein 7.3 Albumin 3.7 Globulin 3.6 Albumin/Globulin Ratio 1.0 COVID-19 Eval Order Covid19 at [facility] SARS-CoV-2 (PCR) NEGATIVE Blood Type Antibody Screen Diagnostic Findings Impressions Chest X-Ray 04/04/21 21:12 SINGLE VIEW CHEST CLINICAL HISTORY: Strokelike symptoms. FINDINGS: An AP, portable, upright chest radiograph is compared to study dated 07/13/2017. The examination is degraded by portable technique and patient rotation. The patient is status post midline sternotomy and cardiac valve surgery. The heart is enlarged noting atherosclerotic calcification of the thoracic aorta. There is mild pulmonary vascular congestion. There is chronic elevation of the left hemidiaphragm with bibasilar scarring/atelectasis. No airspace consolidation or large pleural effusion is identified. No pneumothorax is seen. The skeletal structures are osteopenic. The bony thorax is grossly intact. IMPRESSION: Cardiomegaly with mild pulmonary vascular congestion. ACT 112: Negative or not required by law. Electronically signed by: Juan Francisco Jernigan M.D. 04/04/2021 9:[address] 04/04/21 21:12 CT SCAN OF THE BRAIN WITHOUT IV CONTRAST CLINICAL HISTORY: Strokelike symptoms. COMPARISON STUDY: No priors. TECHNIQUE: Unenhanced axial CT scan of the brain is performed from the vertex to the skull base. A dose lowering technique was utilized adhering to the principles of ALARA. FINDINGS: Brain parenchyma: There is a large parenchymal hematoma centered in the left basal ganglia. This is best seen on image #13 and measures approximately 5.5 x 6.5 x 4 cm. There is significant surrounding edema with effacement of the left lateral ventricle and minimal [id number]-uv-[id number] midline shift. There is intraventricular extension of hemorrhage, with blood filling the left lateral ventricle. There is also trace blood in the third and fourth ventricles. No additional foci of parenchyma hemorrhage are identified. There are age-related involutional changes noting moderate to advanced confluent subcortical and periventricular microangiopathic change. There is no evidence of acute territorial ischemia by CT criteria. No extra-axial fluid collection is seen. Ventricles, sulci, cisterns: Prominent secondary to involutional change. See above. Intracranial vasculature: There is atherosclerotic calcification of the cavernous carotid arteries. Calvarium: Unremarkable. Sinuses and mastoids: Mucosal thickening is noted in the ethmoid left frontal sinuses. The remaining visualized paranasal sinuses are clear. The mastoid air cells are well pneumatized. Orbits: The bony orbits are grossly intact. There are bilateral ocular lens implants. IMPRESSION: 1. There is an approximately 6.5 cm parenchymal hemorrhage centered in the left basal ganglia. 2. There is significant associated mass effect with effacement of the left lateral ventricle and minimal [id number] midline shift. 3. There is intraventricular extension of hemorrhage, with blood present in the left lateral ventricle as well as the third and fourth ventricles. 4. There is no evidence of acute territorial ischemia by CT criteria. ACT 112: Negative or not required by law. Electronically signed by: Juan Francisco Jernigan M.D. 04/04/2021 9:31 PM Code Status & VTE Plan Code Status DNR/DNI Comfort Measures Only Supervising Physician Co-Signing Physician Notes Attending addendum: I have physically seen this patient, have supervised the medical residents activities, and agree with the H&P unless as otherwise noted. Assessment and Plan: Intracranial hemorrhage- Admission orders for comfort measures as noted Resident Activity Tracking Resident Involvement: Resident Care Provided Care Provided: [facility] Medicine
[2021-04-05] MEDS ORDERED: ONDANSETRON INJ 2 MG/ML 2 ML VIAL IV PRN (02:15)
[2021-04-05] MEDS ORDERED: ONDANSETRON 4 MG OD TAB SL PRN (02:15)
[2021-04-05] MEDS ORDERED: LORazepam 0.5 MG TAB PO PRN (02:15)
[2021-04-05] MEDS: MoRPHine SULFATE 2 MG/ML CARP IV PRN ×2 (02:49→06:20)
[2021-04-05] MEDS: LORazepam 0.5 MG/1 ML VIAL IV PRN (03:25)
[2021-04-05] MEDS: GLYCOPYRROLATE 0.2 MG/ML VIAL IV PRN ×2 (05:11→20:04)
[2021-04-05] MEDS: MoRPHine SULFATE 2 MG/ML CARP IV SCH ×8 (09:32→23:24)
--- NOTE | 2021-04-05 10:02 | Hospitalist Progress Note ---
Date of Service April 05, 2021 Assessment & Plan (1) Intracranial hemorrhage: Plan: Patient is an 85 year old male with PMHx TAVIA, hypertension, Dyslipidemia, Atrial fibrillation who presented as a stroke alert for concerns of R sided facial drooping, weakness, and slurred speech. Patient was found to have a 6.5cm parenchymal hemorrhage centered in the L basal ganglia with mass effect and left to right midline shift. Discussion held with family and patient will be admitted for comfort measures. Comfort Measures Only -Patient with 6.5cm parenchymal hemorrhage in the L basal ganglia with mass effect and L to R midline shift. 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 -Morphine transitioned to: 2mg q2h MATHEW given ongoing air hunger -Glycopyrrolate PRN secretions -Zofran PRN nausea -Oxygen by Nasal cannula PRN for comfort, discussed with family that if the cannula/mask should start bothering the patient again it would be appropriate to remove Dispo: Med/Surg FEN: PO for comfort DVT: deferred Code: DNR/DNI Comfort measures only Admission and Anticipated Discharge Date Admission Date: April 05, 2021 Supervising Physician Co-Signing Physician Notes Resident Physician Supervision Note: I independently interviewed and examined the patient and verified the powell history and physical, reviewed labs and image studies and agree with resident Dr. Taylor findings and care plan. Subjective No acute events overnight. Patient seen the bedside this morning. and grandson at bedside. We reflected on the last 24 hours and how tough this is been for them. They say that Derick looks comfortable right now, was experiencing a little bit of air hunger before. Compared to last night, they note that he looks a lot more at ease. They have no questions or concerns at present. They are understanding with the prognosis. Review of Systems Review of Systems: Unobtainable due to reduced consciousness Physical Exam Physical Exam: General: 85-year-old gentleman who is asleep in his hospital bed with family at the bedside. No acute distress. Cardiac: Tachycardic with regular rhythm. S1 and S2 are present without murmurs rubs or gallops. Pulmonary: Mildly increased respiratory effort with symmetric expansion of the chest. No use of accessory muscles. Doxy mask in place. Lungs are clear to auscultation bilaterally without crackles or wheezes. Abdominal: Normoactive bowel sounds. Abdomen was soft, nondistended, and non- tender to palpation. Extremities: Upper and lower extremities are warm and well perfused. Radial and dorsalis pedis pulses were 2+ b/l. Results & Data Results & Data ([facility]) Vital Signs (Past 12 Hours) Vital Signs Pulse Resp BP Pulse Ox 04/05/21 01:30 95 H 15 141/83 H 95 04/05/21 01:00 95 H 19 115/83 96 04/05/21 00:31 84 22 109/61 95 04/05/21 00:00 109 H 19 136/84 95 04/04/21 23:30 104 H 17 158/90 H 95 04/04/21 22:31 89 L 04/04/21 22:30 111 H 18 137/74 91 04/04/21 22:15 114 H 18 129/77 90 04/04/21 22:00 143 H 177/124 H 92 Resident Activity Tracking Resident Involvement: Resident Care Provided Care Provided: Adult Hospital Medicine
--- NOTE | 2021-04-05 19:43 | Billing Data ---
Date of Service April 05, 2021 Coding Level of Care Code 61773 Initial Inpt Care Lvl 2
--- NOTE | 2021-04-05 23:11 | Electrocardiogram Report ---
Test Reason : Blood Pressure : / mmHG Vent. Rate : 118 BPM Atrial Rate : 092 BPM P-R Int : 000 ms QRS Dur : 108 ms QT Int : 374 ms P-R-T Axes : 000 -21 054 degrees QTc Int : 524 ms Possible Atrial fibrillation with rapid ventricular response with premature ventricular or aberrantly conducted complexes When compared with ECG of 13-JUL-2017 23:16, Frequent PVCs vs aberrantly conducted complexes are now present Confirmed by Den Hamilton ([id number]) on 04/05/2021 11:11:21 PM Referred By: REFERRED SELF Confirmed By:Den Hamilton
[2021-04-06] MEDS: MoRPHine SULFATE 2 MG/ML CARP IV SCH (01:20)
[2021-04-06] MEDS: GLYCOPYRROLATE 0.2 MG/ML VIAL IV PRN ×2 (01:22→11:35)
[2021-04-06] MEDS: LORazepam 0.5 MG/1 ML VIAL IV PRN (02:18)
[2021-04-06] MEDS ORDERED: STAT IV Infusion **Titration per Protocol STA (02:57)
[2021-04-06] MEDS ORDERED: MoRPHine SULF/NSS 250 MG/250 ML BTL IV SCH (03:00)
--- NOTE | 2021-04-06 03:03 | Communication Note ---
Date of Service: April 06, 2021 Patient with continued and worsening breathing. Patient appearing more restless tonight despite ativan and morphine pushes. Discussed with patient's Shoshana who is at bedside. She agrees that at this time further pain control with morphine gtt is appropriate. She is also requesting removal of the oxymask. S/P comfort measures - will start morphine gtt 1mg titrate 0.5mg q30m per protocol. Remove oxymask. Resident Activity Tracking Resident Involvement: Resident Care Provided and Statistics Tutor Coverage Note Care Provided: Adult Hospital Medicine
--- NOTE | 2021-04-06 10:24 | Hospitalist Progress Note ---
Date of Service April 06, 2021 Assessment & Plan (1) Intracranial hemorrhage: Plan: 85yo male with TAVIA, HTN, HLD, and atrial fibrillation who presented as a stroke alert for concerns of R sided facial drooping, weakness, and slurred speech. Patient was found to have a 6.5cm parenchymal hemorrhage centered in the L basal ganglia with mass effect and left to right midline shift. Discussion held with family and patient will be admitted for comfort measures. 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 family grateful for care, note that he has appeared much more comfortable since initiation of morphine gtt vitals noted nad heent nc at breathing unlabored no appearance of pain or respiratory distress ICH, with compression of brain in setting of hemorrhagic CVA treated initially with IV Kcentra (to attempt to reverse xarelto for chronic afib), Cardene gtt, then transitioned to comfort care. Appearing comfortable now. continue current care. Subjective Patient seen and evaluated at bedside this morning. No acute events overnight. This morning, patient is asleep and appears comfortable. Patient's is at [facility]. No new concerns. Per , patient has not opened his eyes since admission. Did not attempt to wake patient for interview or ROS because patient is comfort-measures only. Review of Systems Review of Systems: See HPI Physical Exam Physical Exam: Constitutional: asleep, comfortable-appearing CV: extremities well-perfused Resp: no increased work of breathing Neuro: deferred Results & Data Results & Data ([facility]) Vital Signs (Past 12 Hours) Vital Signs Resp 04/06/21 06:31 29 H 04/06/21 05:00 30 H 04/06/21 02:30 28 H 04/06/21 02:15 27 H 04/06/21 01:20 27 H Resident Activity Tracking Resident Involvement: Resident Care Provided Care Provided: Adult Hospital Medicine
--- NOTE | 2021-04-06 10:47 | Palliative Care Consultation ---
Date of Consultation April 06, 2021 Assessment & Plan (1) Pain: With immobility after hemorrhagic CVA. Continue morphine infusion. With history of "muscle twitching", monitor for myoclonus. Will also add routine lorazepam to minimize opioid toxicity and seizure risk. (2) Palliative care encounter: I talked with Mrs. Roach and her grandson, Reji Roach, at bedside. They are grateful for having had all the family together for an enjoyable weekend at the [facility]. Mrs. Roach is grieving but she is confident that Derick would want to have a peaceful . She has the support of her grandson as well as numerous friends and family. We talked about what to expect. His prognosis is poor and his likely to within hours to a day or two. (3) Intracranial hemorrhage: (4) Obstructive sleep apnea: (5) Hypertension: (6) Dyslipidemia: (7) Atrial fibrillation: History of Present Illness Reason for Consultation: comfort measures Requesting Physician: Dr. Cruz Attending Physician: Janes Multani DO History of Present Illness 85 yo gentleman with history of sleep apnea and atrial fibrillation on aspirin and rivaroxaban as well as hypertension and hyperlipidemia. He was admitted with 6.5 cm left parenchymal hemorrhage in the basal ganglia with edema and shift. His notes that they had been at [facility] and had just gotten ice cream when he was unable to get out of the chair and had a right facial droop. He had discussed his wishes in the past and had a living will and would not want aggressive treatment. Per his wishes, focus of his care is now comfort. He was having restlessness over night despite lorazepam and morphine dosing and was started on a morphine infusion, currently at 2mg/hr. Mrs. Roach tells me that he had been having some muscle twitching earlier as well. His GFR is 45.9. He is currently resting comfortably. Allergies Allergy/AdvReac Type Severity Reaction Status Date / Time No Known Drug Allergies Allergy Verified 04/04/21 21:32 Home Medications Medication Instructions Recorded Confirmed Type aspirin 81 mg tablet,delayed 81 mg PO DAILY #90 tab 03/16/19 04/04/21 Rx release (Adult Low Dose Aspirin) Auto Titrating CPAP #1 ea 12/28/19 12/01/20 Rx atorvastatin 40 mg tablet 40 mg PO DAILY #90 tab 09/25/20 04/04/21 Rx metoprolol succinate 25 mg See Rx Instructions PO .COMPLEX 12/01/20 04/04/21 Rx tablet,extended release 24 hr #270 tab calcium carbonate-vitamin D3 600 1 cap PO DAILY cap 12/15/20 04/04/21 History mg (1,500 mg)-400 unit capsule multivitamin 1 tab PO QAM 04/04/21 04/04/21 History ramipril 10 mg capsule 10 mg PO BID 04/04/21 04/04/21 History rivaroxaban 20 mg tablet 20 mg PO HS 04/04/21 04/04/21 History Patient History Medical History Acute bronchospasm History of hypotension Nephrolithiasis Wheezing Surgical History History of angioplasty History of appendectomy History of mitral valve repair Status post operation involving aortic valve Family History Mother Myocardial infarction Other Diabetes Denies family history of Ovarian cancer Prostate cancer Breast cancer Colorectal cancer Social History Smoking Status: Former smoker Tobacco Type: Pipe Age Quit Using Tobacco: 44; Years Smoked: 20; Cigarettes Per Day: SMOKED PIPE REGULARLY; Hx Alcohol Use: No Hx Substance Use: No Visual Impairment: No Limitations Hearing Ability: Use of Hearing Aid Beliefs That Will Affect Care: None marital status: Current Living Situation: Spouse current occupational status: retired Feels Safe at Home: Yes caffeine: Yes during the past year weight has: remained stable Dental Care, Regularly: Yes Physical Activity Frequency: 3-4 Times per Week Seatbelt Use: always Sunscreen Use: No Assistive Devices: Oxygen - Continuous Review of Systems Review of Systems: Unobtainable due to reduced consciousness [place] Symptom Assessment Scale PainAD 0/3 Dyspnea by observation 0/3 Palliative Performance Score 10% Physical Exam Constitutional: no acute distress Respiratory: no labored breathing mild audible tracheal secretions Cardiovascular: Rate/Rhythm: + irregularly irregular Gastrointestinal (Abdomen): soft Musculoskeletal: Extremities: extremities normal to inspection Neurologic: Right upper extremity flaccid, right facial droop, obtunded, no myoclonus noted Results & Data ([facility]) Vital Signs (Past 12 Hours) Vital Signs Resp 04/06/21 06:31 29 H 04/06/21 05:00 30 H 04/06/21 02:30 28 H 04/06/21 02:15 27 H 04/06/21 01:20 27 H PG Care Time/CCT Total # of Minutes Spent Total Time Spent: 60 Total Time Spent with Patient: Total time spent is greater than 50% in coordination of care (as documented) at patient's floor/unit and/or counseling patient: symptom management, family education and support Coding Level of Care Code 05908 Initial Inpt Care Lvl 2 Diagnoses Pain R52 Palliative care encounter Z51.5 Intracranial hemorrhage I62.9 Obstructive sleep apnea G47.33 Hypertension I10 Dyslipidemia E78.5 Atrial fibrillation I48.91
[2021-04-06] MEDS: LORazepam 0.5 MG/1 ML VIAL IV SCH ×4 (11:35→23:41)
--- NOTE | 2021-04-06 17:45 | Billing Data ---
Date of Service April 06, 2021 Coding Level of Care Code 24175 Subseq Hosp Care Lvl 2
--- NOTE | 2021-04-06 23:54 | Death Pronouncement Note ---
Date of Service April 06, 2021 Pronouncement Note Admission Date Admission Date: April 05, 2021 Date and Time of Date of : 04/06/21 Time of : 23:40 Contributing Factors (1) Intracranial hemorrhage: Hospital Course Hospital Course: 85yo male with TAVIA, HTN, HLD, and atrial fibrillation who presented as a stroke alert for concerns of R sided facial drooping, weakness, and slurred speech. Patient was found to have a 6.5cm parenchymal hemorrhage centered in the L basal ganglia with mass effect and left to right midline shift. Discussion held with family and patient will be admitted for comfort measures. Intraparenchymal hemorrhage Patient with 6.5cm intraparenchymal hemorrhage of left basal ganglia with mass effect and [id number] midline shift Per discussion with patient's family, patient has been made comfort-measures only Palliative care following Continued morphine 2mg q2h scheduled (for ongoing air hunger) which was transitioned to morphine gtt Continued glycopyrrolate as-needed for secretions Continued zofran as-needed for nausea Supplemental oxygen discontinued due to patient discomfort with oxymask Summary Additional details: Called to examine patient by nursing at 23:32 as the patient had stopped breathing. Came to the bedside and examined patient - no pulse, breath sounds, corneal reflex, or pupil constriction. Patient pronounced at 23:40, patient's Shoshana was at bedside. 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
--- NOTE | 2021-04-07 06:51 | Discharge Summary ---
Date of Service April 07, 2021 Admission HPI Per Admitting Provider Patient is an 85 year old male with PMHx TAVIA, hypertension, Dyslipidemia, Atrial fibrillation who presented as a stroke alert for concerns of R sided facial drooping, weakness, and slurred speech. Patient was found to have a 6.5cm parenchymal hemorrhage centered in the L basal ganglia with mass effect and left to right midline shift. Patient is unable to provide any history at this time due to lack of consciousness, and patient's , Shoshana, provides the history. She notes that they were out at the [facility] when the patient had gone to sit down. He then noted that he was unable to stand back up and other family members noticed the R sided facial drooping. EMS was called and patient was immediately brought to the ED for evaluation of stroke. Patient was found to have a significant parenchymal hemorrhage. Family decided that they would not want to pursue treatment and would rather bring the patient into the hospital for comfort measures. This was again addressed with Shoshana who agreed she would not want any heroic measures taken and that the ultimate goal for Derick would be to make his passing as comfortable as possible. She noted that they both had already completed their living ornelas in the event something like this would happen. Admission Exam Per Admitting Provider Neuro: Patient with reduced consciousness with minimal reaction to physical stimuli. R sided facial droop. Unable to follow commands. Heart: Tachycardic, irregularly irregular Lungs: CTA bilateral Abdomen: Soft, normal bowel sounds Principal Diagnosis Intraparenchymal hemorrhage Discharge Exam Constitutional: laying motionless in bed HEENT: pupils fixed and dilated CV: no heart sounds Resp: no breath sounds, no chest rise Neuro: unresponsive to verbal or tactile stimuli Discharge Data Allergies Allergy/AdvReac Type Severity Reaction Status Date / Time No Known Drug Allergies Allergy Verified 04/04/21 21:32 Consultations 04/04/21 22:21 ED Decision to Admit Stat 04/05/21 02:15 Consult Palliative Care Routine Ordered Studies 04/04/21 21:12 CT head/brain wo con Stat Hospital Course (1) Intracranial hemorrhage: 85yo male with TAVIA, HTN, HLD, and atrial fibrillation who presented as a stroke alert for concerns of R sided facial drooping, weakness, and slurred speech. Patient was found to have a 6.5cm parenchymal hemorrhage centered in the L basal ganglia with mass effect and left to right midline shift. Discussion held with family and patient will be admitted for comfort measures. Patient did not regain consciousness while in the hospital. Patient on hospital day two with at bedside. Total Time Total Time Spent Total Time Spent (In Minutes): see attending documentation Discharge Plan Discharge Items Patient Disposition: Discharge Diagnosis: Intracranial Hemorrhage Addtl Attending Provider Instructions: See note for further details. Patient pronounced at 11:40PM on 04/06/21 Supervising Physician Co-Signing Physician Notes as per Dr Diaz, agree with above. Resident Activity Tracking Resident Involvement: Resident Care Provided Care Provided: Adult Hospital Medicine
--- NOTE | 2021-04-16 12:39 | Coding Query ---
CODING QUERY To promote full compliance with coding requirements relating to patient care, provider participation is requested in all cases of delivery helper uncertainty. Please assist us with the question(s) below: Coding Question(s): Compression of the Brain was documented by you on progress note from 04/06. This is only documented once and does not make discharge. Please clarify if diagnosis is still possible or ruled out: (x ) Compression of Brain ( ) Compression of Brain Ruled Out ( ) Other Please Explain: Thank you Derick Alatorre Principal Diagnosis: "that condition established after study, to be chiefly responsible for occasioning the admission of the patient to the hospital for care." Co-Existing Principal Diagnosis: "when two or more diagnoses equally meet the criteria for principal diagnosis as determined by the circumstances of admission, diagnostic work up, and/or therapy provided, and the Alphabetic Index, Tabular List, or another coding guideline does not provide sequencing direction, any one of the diagnoses may be sequenced first." "When the physician has documented what appears to be a current diagnosis in the body of the record, but has not included the diagnosis in the final diagnostic statement, the physician should be asked whether the diagnosis should be added." (Source Coding Clinic 2 QTR90. p3-4) DREA
== END 2021-04-06 23:40 | disposition expired | DRG 64 ==
LOC: ED 21:18 → SUATTDRO 04-05 00:28 → 3W 04-05 00:28